=== PATIENT | male | born 2000 | race Caucasian/White ===

== ENCOUNTER 2019-10-05 13:51 | Emergency (ER) | payer SELFPAY ==
[2019-10-05 13:58] VITALS: BP 109/62; PULSE 55; RESP 16; TEMP 36.9; O2SAT 100
--- NOTE | 2019-10-05 14:10 | ED.GENADULT ---
HPI - General Adult General Chief complaint: Upper Respiratory Infection Stated complaint: levi/cough/sob/fever/body aches Time Seen by Provider: 10/05/19 14:11 Source: patient and RN notes reviewed Mode of arrival: ambulatory Limitations: no limitations History of Present Illness HPI narrative: This is a 19 years old male presented office for evaluation of cold/flulike symptoms for couple day. Symptoms include stuffy nose, body ache, chills and cough. Did not receive influenza vaccine for this season. He does not smoke however he does do e-cigarettes. Denies sick contact at home. He has been taking NyQuil for his symptoms. Related Data Allergies Allergy/AdvReac Type Severity Reaction Status Date / Time No Known Allergies Allergy Verified 10/05/19 14:05 Review of Systems Review of Systems: Narrative: CONSTITUTIONAL: Denies fever or chills/bodyache except at the beginning of his symptoms ENT:Reports sinus congestion/drainage. Denies otalgia. CARDIOVASCULAR: Denies chest pain RESPIRATORY: Denies dyspnea, wheezing. Reports cough with phlegm and chest tightness at times GASTROINTESTINAL: Denies abdominal pain, nausea, vomiting, diarrhea. GENITOURINARY: Denies urinary symptoms or discharge SKIN: Denies rash MUSCULOSKELETAL: Denies acute back pain NEUROLOGIC: Denies lightheaded PMFSH Social History Social History (Updated 10/05/19 @ 14:21 by LORA Borjas) Tobacco type: e-cigarettes Comments At time of signature, I agree with nursing past medical, surgical, social and family history. There is no relevant family history pertinent to the presenting complaint. Exam Narrative: Exam Narrative: GENERAL: This is a well-nourished, well-developed patient, in no apparent distress. EYES: Sclera clear/white. Vision is grossly intact. EARS: External ears normal, auditory canals clear and without drainage, TMs normal without perforation. Hearing grossly intact. NOSE: External nose normal with no obvious nasal discharge, nares without redness, no rhinorrhea. THROAT: Mucous membranes moist, posterior pharynx pink with drainage NECK: Neck supple, non-tender without lymphadenopathy, masses or thyromegaly. CARDIOVASCULAR: Regular rate and rhythm without murmurs, gallops, or rubs. RESPIRATORY: Clear to auscultation. Breath sounds equal bilaterally. No wheezes, rales, or rhonchi. GASTROINTESTINAL: Abdomen soft, non-tender, nondistended. Bowel sounds are active. No hepato-splenomegaly, or palpable masses. No guarding. SKIN: warm, intact with no suspicious lesions or rash, good texture and turgor. NEURO: awake, alert, and oriented to person, place and time. There were no obvious focal neurologic abnormalities. Steady gait Ahsan Coma Scale Eye Opening: Spontaneous 4 Ahsan Coma Scale Motor: Obeys Commands 6 Ahsan Coma Scale Verbal: Oriented 5 Course Vital Signs Vital signs: Vital Signs Temperature 98.5 F 10/05/19 13:58 Pulse Rate 55 L 10/05/19 13:58 Respiratory Rate 16 10/05/19 13:58 Blood Pressure 109/62 10/05/19 13:58 Pulse Oximetry 100 10/05/19 13:58 Temperature 98.5 F 10/05/19 13:58 Pulse Rate 55 L 10/05/19 13:58 Respiratory Rate 16 10/05/19 13:58 Blood Pressure 109/62 10/05/19 13:58 Pulse Oximetry 100 10/05/19 13:58 Medical Decision Making MDM Narrative Medical decision making narrative: No influenza test is indicated since patient is out of range for treatment at this time. Discharge instructions reviewed with patient, as well as provided in writing per nursing staff. The instructions also include specific and strict return/GO TO THE ER as well as f/u information. All questions have been answered, and the patient deny any further questions with discharge and discharge plan. Differential Diagnosis Differential Diagnosis: pneumonia, Allergic Rhinitis, Upper respiratory cough syndrome, Pharyngitis, Sinusitis, Bronchitis, otitis media, viral URI, Asthma/reactive airway disease
== END 2019-10-05 14:20 | disposition home or self-care (01) ==
PROVIDERS: Emergency Provider Nurse Practitioner
DX: J06.9 Acute upper respiratory infection, unspecified (principal); F17.200 Nicotine dependence, unspecified, uncomplicated
CPT/HCPCS: 99213; G0463

== ENCOUNTER 2020-12-18 14:19 | Emergency (ER) | payer SELFPAY ==
[2020-12-18 14:28] VITALS: BP 120/72; PULSE 55; RESP 16; TEMP 36.7; O2SAT 100
--- NOTE | 2020-12-18 14:50 | ED.GENADULT ---
HPI - General Adult General Chief complaint: Dental/Oral Stated complaint: Tooth pain Source: patient and RN notes reviewed Mode of arrival: ambulatory Limitations: no limitations History of Present Illness HPI narrative: This is a 20-year-old male who presented to urgent care with tooth pain patient has a decayed broken tooth at #9 in decayed tooth #7 and 8. Patient is unable to afford a dentist at this time but he has made an appointment for a dentist in approximately 1-1/2-week he is planning on getting all teeth removed and dentures placed. The patient denies SOB, CP, palpitation, extremity numbness, lightheadedness, dizziness, constipation, diarrhea, chills, or fever. MD complaint: Tooth ache Related Data Allergies Allergy/AdvReac Type Severity Reaction Status Date / Time No Known Allergies Allergy Verified 12/18/20 14:24 Review of Systems Review of Systems: Narrative: A 14 organ system Review of Systems was performed and pertinent positives included in the HPI, otherwise remaining ROS is negative. [facility] Family History Family History (Updated 12/18/20 @ 14:51 by RICK AdornoC) Other Family history non-contributory Social History Social History (Updated 10/05/19 @ 14:21 by LORA Borjas) Tobacco type: e-cigarettes/vaping Gender identity (if verbalized by the patient): Male Exam Narrative: Exam Narrative: GENERAL: This is a well-nourished, well-developed patient, in no apparent distress. HEAD: normocephalic, atraumatic. EYES: PERRL. Sclera clear/white. Vision is grossly intact. EARS: External ears normal, auditory canals clear and without drainage, TMs normal without perforation. Hearing grossly intact. NOSE: External nose normal with no obvious nasal discharge, nares without redness, no rhinorrhea. THROAT: Mucous membranes moist, posterior pharynx clear. NECK: Neck supple, non-tender without lymphadenopathy, masses or thyromegaly. CARDIOVASCULAR: Regular rate and rhythm without murmurs, gallops, or rubs. RESPIRATORY: Clear to auscultation. Breath sounds equal bilaterally. No wheezes, rales, or rhonchi. GASTROINTESTINAL: Abdomen soft, non-tender, nondistended. Bowel sounds are active. No hepato-splenomegaly, or palpable masses. No guarding. SKIN: warm, intact with no suspicious lesions or rash, good texture and turgor. NEURO: awake, alert, and oriented to person, place and time. There were no obvious focal neurologic abnormalities. Steady gait EXTREMITIES: Normal range of motion. No edema. No calf tenderness. Negative Homans sign bilaterally. BACK: Nontender without deformity or crepitance. No flank tenderness. Mouth: Broken decayed tooth #8 with decay at 7 and 8 Course Course Emergency Course: Patient will discharge home with antibiotics and pain medication he will follow up with the dentist in approximately a week and a half Vital Signs Vital signs: Vital Signs Temperature 98.1 F 12/18/20 14:28 Pulse Rate 55 L 12/18/20 14:28 Respiratory Rate 16 12/18/20 14:28 Blood Pressure 120/72 12/18/20 14:28 Pulse Oximetry 100 12/18/20 14:28 Temperature 98.1 F 12/18/20 14:28 Pulse Rate 55 L 12/18/20 14:28 Respiratory Rate 16 12/18/20 14:28 Blood Pressure 120/72 12/18/20 14:28 Pulse Oximetry 100 12/18/20 14:28 Medical Decision Making Vital Signs Vital Signs: Vital Signs Temperature 98.1 F 12/18/20 14:28 Pulse Rate 55 L 12/18/20 14:28 Respiratory Rate 16 12/18/20 14:28 Blood Pressure 120/72 12/18/20 14:28 Pulse Oximetry 100 12/18/20 14:28 Temperature 98.1 F 12/18/20 14:28 Pulse Rate 55 L 12/18/20 14:28 Respiratory Rate 16 12/18/20 14:28 Blood Pressure 120/72 12/18/20 14:28 Pulse Oximetry 100 12/18/20 14:28 Discharge Plan Discharge Clinical Impression: Dental caries Patient Disposition: Home, Self-Care Condition: Stable Instructions: Antibiotic Form Additional Instructions: Avoid temperature extremes
== END 2020-12-18 15:00 | disposition home or self-care (01) ==
PROVIDERS: Emergency Provider Nurse Practitioner
DX: K02.9 Dental caries, unspecified (principal); F17.200 Nicotine dependence, unspecified, uncomplicated
CPT/HCPCS: 99213; G0463

== ENCOUNTER 2022-10-06 12:27 | Emergency (ER) | payer SELFPAY ==
[2022-10-06 12:44] VITALS: BP 104/59; PULSE 66; RESP 16; TEMP 36.8; O2SAT 100
--- NOTE | 2022-10-06 12:58 | ED.URI ---
HPI - URI/Sore Throat General Chief Complaint: Upper Respiratory Infection Stated Complaint: headache Time Seen by Provider: 10/06/22 12:58 Source: patient Mode of arrival: ambulatory Limitations: no limitations History of Present Illness HPI Narrative: 22 yo M presents with c/o sinus headache, congestion and low grade fever starting around 5am. Took ibuprofen and feels better. Needs work note. No other complaints. Well appearing. All systems reviewed and negative except as noted above. Related Data Home Medications Medication Instructions Recorded Confirmed No Home Medications 10/06/22 10/06/22 Allergies Allergy/AdvReac Type Severity Reaction Status Date / Time No Known Allergies Allergy Verified 10/06/22 12:37 Review of Systems Review of Systems: CONSTITUTIONAL: Denies fever, chills, or sweats. EYES: Denies visual changes, redness, or discharge. ENT: Reports rhinorrhea, congestion, sinus pressure. Denies sore throat, or otalgia. CARDIOVASCULAR: Denies chest pain, palpitations, or edema. RESPIRATORY: Denies cough or dyspnea. GASTROINTESTINAL: Denies abdominal pain, nausea, vomiting, or diarrhea. GENITOURINARY: Denies dysuria or hematuria. SKIN: Denies rash or itching. MUSCULOSKELETAL: Denies back pain, joint pain, or myalgia. NEUROLOGIC: Denies headache, numbness, or weakness. PSYCHIATRIC: Denies anxiety or depression. All other systems reviewed are negative, except as documented in HPI. [facility] Family History Family History (Updated 12/18/20 @ 14:51 by LORA Adorno-C) Other Family history non-contributory Social History Social History (Updated 10/05/19 @ 14:21 by LORA Borjas) Tobacco type: e-cigarettes/vaping Gender identity (if verbalized by the patient): Male Comments At time of signature, agree with nursing past medical, surgical, social and family history. There is no relevant family history pertinent to the presenting complaint. Exam Narrative: GENERAL: This is a well-nourished, well-developed patient, in no apparent distress. HEAD: normocephalic, atraumatic. EYES: PERRL. Sclera clear/white. Vision is grossly intact. EARS: External ears normal, auditory canals clear and without drainage, TMs normal without perforation. Hearing grossly intact. NOSE: External nose normal with erythema, clear nasal drainage. No sinus tenderness. THROAT: Mucous membranes moist, No erythema, clear postnasal drainage. NECK: Neck supple, non-tender without lymphadenopathy, masses or thyromegaly. CARDIOVASCULAR: Regular rate and rhythm without murmurs, gallops, or rubs. RESPIRATORY: Clear to auscultation. Breath sounds equal bilaterally. No wheezes, rales, or rhonchi. \ SKIN: warm, Dry, intact with no suspicious lesions or rash, good texture and turgor. NEURO: awake, alert, and oriented to person, place and time. There were no obvious focal neurologic abnormalities. EXTREMITIES: No joint tenderness, effusion, or edema noted. Course Course Level of Care: Express Care Visit Vital Signs Vital signs: Vital Signs Temperature 36.8 C 10/06/22 12:44 Pulse Rate 66 10/06/22 12:44 Respiratory Rate 16 10/06/22 12:44 Blood Pressure 104/59 L 10/06/22 12:44 Pulse Oximetry 100 10/06/22 12:44 Oxygen Delivery Room Air 10/06/22 12:44 Temperature 36.8 C 10/06/22 12:44 Pulse Rate 66 10/06/22 12:44 Respiratory Rate 16 10/06/22 12:44 Blood Pressure 104/59 L 10/06/22 12:44 Pulse Oximetry 100 10/06/22 12:44 Oxygen Delivery Room Air 10/06/22 12:44 Reviewed MDM - URI/Sore Throat MDM Narrative Medical decision making narrative: Patient is aware of diagnosis, understands and agrees to treatment plan. Anticipatory guidance given. Patient agrees to follow-up as directed and is aware of reasons to seek care at the emergency department. Portions of this record may have been created with voice recognition software Discharge Plan Discharge Clinical
== END 2022-10-06 13:06 | disposition home or self-care (01) ==
PROVIDERS: Emergency Provider Nurse Practitioner Family
DX: J01.90 Acute sinusitis, unspecified (principal)
CPT/HCPCS: 99211; G0463

== ENCOUNTER 2022-12-10 15:47 | Emergency (ER) | payer OTHER, SELFPAY ==
--- NOTE | 2022-12-10 15:48 | ED.URI ---
HPI - URI/Sore Throat General Chief Complaint: Headache Stated Complaint: Headache/fever Time Seen by Provider: 12/10/22 16:26 Source: patient and RN notes reviewed Mode of arrival: ambulatory Limitations: no limitations History of Present Illness HPI Narrative: 22-year-old male presents with concern for missing work this morning because of a headache. He reports he does not have any symptoms. He reports he does not have fever aches, chills, sweats, runny nose, stuffy nose, sore throat, cough. He denies taking any medications for his symptoms MD elicited complaint: other (Headache) Related Data Home Medications Medication Instructions Recorded Confirmed No Home Medications 10/06/22 12/10/22 Allergies Allergy/AdvReac Type Severity Reaction Status Date / Time No Known Allergies Allergy Verified 12/10/22 16:20 Review of Systems Review of Systems: CONSTITUTIONAL: Denies malaise, chills, sweats, or fever. EYES: Denies visual changes, redness, or discharge. ENT: Denies rhinorrhea, congestion, sinus pain, otalgia and sore throat. CARDIOVASCULAR: Denies chest pain, palpitations, or edema. RESPIRATORY: Denies cough. Denies dyspnea. GASTROINTESTINAL: Denies abdominal pain, nausea, vomiting, diarrhea SKIN: Denies rash or itching. MUSCULOSKELETAL: Denies myalgia. NEUROLOGIC: Reports 1 episode of headache. All systems reviewed & are unremarkable except as noted in HPI and below PMFSH Family History Family History (Updated 12/18/20 @ 14:51 by LORA Adorno-C) Other Family history non-contributory Social History Social History (Updated 10/05/19 @ 14:21 by LORA Borjas) Tobacco type: e-cigarettes/vaping Gender identity (if verbalized by the patient): Male Comments At time of signature, agree with nursing past medical, surgical, social and family history. There is no relevant family history pertinent to the presenting complaint Exam Narrative: GENERAL: Well-appearing, well-nourished, and in no acute distress. HEAD: Normocephalic EYES: PERRLA, conjunctivae clear ENT: Nares clear, no discharge. Mucous membranes moist. TM pearly reyes with dull light reflex bilaterally; no tragal tenderness. Oropharynx not erythematous without lesions. Tonsils not enlarged and without exudate, no drooling, no hoarseness, no trismus, uvula midline. NECK: Supple. No lymphadenopathy CHEST: Clear to auscultation, breath sounds equal. No wheezing, rhonchi, rales, or stridor. No respiratory distress, speaks in full sentences. HEART: Regular rate and rhythm. No murmur heard. SKIN: Warm, dry, no rash. NEURO: Alert and oriented x3. PSYCH: Normal mood and affect Course Course Emergency Course: Patient is aware of diagnosis, understands and agrees to treatment plan. Anticipatory guidance given. Patient agrees to follow-up as directed and is aware of reasons to seek care at the emergency department. Portions of this record may have been created with voice recognition software Level of Care: Express Care Visit Vital Signs Vital signs: Vital Signs Temperature 97.9 F 12/10/22 15:59 Pulse Rate 69 12/10/22 15:59 Respiratory Rate 18 12/10/22 15:59 Blood Pressure 100/66 12/10/22 15:59 Pulse Oximetry 100 12/10/22 15:59 Oxygen Delivery Room Air 12/10/22 15:59 Temperature 97.9 F 12/10/22 15:59 Pulse Rate 69 12/10/22 15:59 Respiratory Rate 18 12/10/22 15:59 Blood Pressure 100/66 12/10/22 15:59 Pulse Oximetry 100 12/10/22 15:59 Oxygen Delivery Room Air 12/10/22 15:59 Reviewed. MDM - URI/Sore Throat MDM Narrative Medical decision making narrative: Differential diagnosis considered: Pedroza virus, strep pharyngitis, allergic rhinitis, upper respiratory tract infection, sinusitis, rhinosinusitis, nasopharyngitis. viral pharyngitis, otitis media, otitis externa, pneumonia, bronchitis, viral cough syndrome, viral syndrome, and influenza. Exam findings show no acute co
[2022-12-10 15:59] VITALS: BP 100/66; PULSE 69; RESP 18; TEMP 36.6; O2SAT 100
== END 2022-12-10 16:38 | disposition home or self-care (01) ==
PROVIDERS: Emergency Provider Nurse Practitioner
DX: R51.9 Headache, unspecified (principal); F17.290 Nicotine dependence, other tobacco product, uncomplicated
CPT/HCPCS: 99213; G0463

== ENCOUNTER 2024-03-20 16:01 | Emergency (ER) | payer SELFPAY ==
[2024-03-20 16:43] VITALS: BP 138/77; PULSE 76; RESP 18; TEMP 37.1; O2SAT 100
--- NOTE | 2024-03-20 17:25 | ED.NAVMDI ---
HPI - Nausea/Vomiting/Diarrhea General Chief complaint: Nausea/Vomiting/Diarrhea Stated complaint: nausea and headaches Time Seen by Provider: 03/20/24 17:25 Source: patient Mode of arrival: ambulatory Limitations: no limitations History of Present Illness HPI Narrative: 24-year-old male here for work note. Patient states he woke up yesterday feeling nauseated and had diarrhea. Was in able to go to work due to symptoms. afebrile. States all symptoms have resolved. All systems reviewed and negative except as noted above. Related Data Home Medications Medication Instructions Recorded Confirmed No Home Medications 10/06/22 03/20/24 Allergies Allergy/AdvReac Type Severity Reaction Status Date / Time No Known Allergies Allergy Verified 03/20/24 16:52 Review of Systems Review of Systems: CONSTITUTIONAL: Denies fever, chills, or sweats. EYES: Denies visual changes, redness, or discharge. ENT: Denies rhinorrhea, congestion, sore throat, or otalgia. CARDIOVASCULAR: Denies chest pain, palpitations, or edema. RESPIRATORY: Denies cough or dyspnea. GASTROINTESTINAL: Denies abdominal pain, vomiting . Reports nausea and diarrhea. GENITOURINARY: Denies dysuria or hematuria. SKIN: Denies rash or itching. MUSCULOSKELETAL: Denies back pain, joint pain, or myalgia. NEUROLOGIC: Denies headache, numbness, or weakness. PSYCHIATRIC: Denies anxiety or depression. All other systems reviewed are negative, except as documented in HPI. [facility] Family History Family History (Updated 12/18/20 @ 14:51 by RICK AdornoC) Other Family history non-contributory Social History Social History (Updated 10/05/19 @ 14:21 by LORA Borjas) Tobacco type: e-cigarettes/vaping Gender identity (if verbalized by the patient): Male Comments At time of signature, agree with nursing past medical, surgical, social and family history. There is no relevant family history pertinent to the presenting complaint. Exam Narrative: GENERAL: This is a well-nourished, well-developed patient, in no apparent distress. HEAD: normocephalic, atraumatic. EYES: PERRL. Sclera clear/white. Vision is grossly intact. EARS: External ears normal NOSE: External nose normal NECK: Neck supple, non-tender without lymphadenopathy, masses or thyromegaly. CARDIOVASCULAR: Regular rate and rhythm without murmurs, gallops, or rubs. RESPIRATORY: Clear to auscultation. Breath sounds equal bilaterally. No wheezes, rales, or rhonchi. GASTROINTESTINAL: Abdomen soft, non-tender, nondistended. Bowel sounds are active. No hepato-splenomegaly, or palpable masses. No guarding. SKIN: warm, Dry, intact with no suspicious lesions or rash, good texture and turgor. NEURO: awake, alert, and oriented to person, place and time. There were no obvious focal neurologic abnormalities. EXTREMITIES: No joint tenderness, effusion, or edema noted. Course Course Level of Care: Express Care Visit Vital Signs Vital signs: Vital Signs Temperature 37.1 C 03/20/24 16:43 Pulse Rate 76 03/20/24 16:43 Respiratory Rate 18 03/20/24 16:43 Blood Pressure 138/77 03/20/24 16:43 Pulse Oximetry 100 03/20/24 16:43 Oxygen Delivery Room Air 03/20/24 16:43 Temperature 37.1 C 03/20/24 16:43 Pulse Rate 76 03/20/24 16:43 Respiratory Rate 18 03/20/24 16:43 Blood Pressure 138/77 03/20/24 16:43 Pulse Oximetry 100 03/20/24 16:43 Oxygen Delivery Room Air 03/20/24 16:43 reviewed MDM - Nausea/Vomiting/Diarrhea MDM Narrative Medical decision making narrative: patient well-appearing. All symptoms have resolved at this time. Patient is aware of diagnosis, understands and agrees to treatment plan. Anticipatory guidance given. Patient agrees to follow-up as directed and is aware of reasons to seek care at the emergency department. Portions of this record may have been created with voice recognition software Discharge Plan Disch
== END 2024-03-20 17:30 | disposition home or self-care (01) ==
PROVIDERS: Emergency Provider Nurse Practitioner Family
DX: R11.0 Nausea (principal); R19.7 Diarrhea, unspecified; F17.290 Nicotine dependence, other tobacco product, uncomplicated
CPT/HCPCS: 99211; G0463

== ENCOUNTER 2024-04-19 11:11 | Emergency (ER) | payer SELFPAY ==
[2024-04-19 11:20] VITALS: BP 124/69; PULSE 73; RESP 16; TEMP 36.6; O2SAT 100
--- NOTE | 2024-04-19 11:26 | ED.URI ---
HPI - URI/Sore Throat General Chief Complaint: Upper Respiratory Infection Stated Complaint: sinus infection Time Seen by Provider: 04/19/24 11:27 Source: patient Mode of arrival: ambulatory Limitations: no limitations History of Present Illness HPI Narrative: 24-year-old male presents with complaint of postnasal drainage, sinus congestion and pressure starting yesterday. Afebrile. No fatigue, chills or body aches. Has not started any [id number] medications to treat his symptoms. Patient concern for sinus infection. Patient requesting work note. All systems reviewed and negative except as noted above. Related Data Home Medications Medication Instructions Recorded Confirmed No Home Medications 10/06/22 04/19/24 Allergies Allergy/AdvReac Type Severity Reaction Status Date / Time No Known Allergies Allergy Verified 04/19/24 11:14 Review of Systems Review of Systems: CONSTITUTIONAL: Denies fever, chills, or sweats. EYES: Denies visual changes, redness, or discharge. ENT: Reports rhinorrhea, congestion, sinus pressure, postnasal drainage. Denies sore throat, or otalgia. CARDIOVASCULAR: Denies chest pain, palpitations, or edema. RESPIRATORY: Denies cough or dyspnea. GASTROINTESTINAL: Denies abdominal pain, nausea, vomiting, or diarrhea. GENITOURINARY: Denies dysuria or hematuria. SKIN: Denies rash or itching. MUSCULOSKELETAL: Denies back pain, joint pain, or myalgia. NEUROLOGIC: Denies headache, numbness, or weakness. PSYCHIATRIC: Denies anxiety or depression. All other systems reviewed are negative, except as documented in HPI. PMFSH Family History Family History (Updated 12/18/20 @ 14:51 by CLARISSE Adorno) Other Family history non-contributory Social History Social History (Updated 10/05/19 @ 14:21 by LORA Borjas) Tobacco type: e-cigarettes/vaping Gender identity (if verbalized by the patient): Male Comments At time of signature, agree with nursing past medical, surgical, social and family history. There is no relevant family history pertinent to the presenting complaint. Exam Narrative: GENERAL: This is a well-nourished, well-developed patient, in no apparent distress. HEAD: normocephalic, atraumatic. EYES: PERRL. Sclera clear/white. Vision is grossly intact. EARS: External ears normal, auditory canals clear and without drainage, TMs normal without perforation. Hearing grossly intact. NOSE: External nose normal with clear nasal drainage, mild congestion. THROAT: Mucous membranes moist, clear postnasal drainage without erythema, swelling or exudates. NECK: Neck supple, non-tender without lymphadenopathy, masses or thyromegaly. CARDIOVASCULAR: Regular rate and rhythm without murmurs, gallops, or rubs. RESPIRATORY: Clear to auscultation. Breath sounds equal bilaterally. No wheezes, rales, or rhonchi. SKIN: warm, Dry, intact with no suspicious lesions or rash, good texture and turgor. NEURO: awake, alert, and oriented to person, place and time. There were no obvious focal neurologic abnormalities. EXTREMITIES: No joint tenderness, effusion, or edema noted. Course Course Level of Care: Express Care Visit Vital Signs Vital signs: Vital Signs Temperature 36.6 C 04/19/24 11:20 Pulse Rate 73 04/19/24 11:20 Respiratory Rate 16 04/19/24 11:20 Blood Pressure 124/69 04/19/24 11:20 Pulse Oximetry 100 04/19/24 11:20 Oxygen Delivery Room Air 04/19/24 11:20 Temperature 36.6 C 04/19/24 11:20 Pulse Rate 73 04/19/24 11:20 Respiratory Rate 16 04/19/24 11:20 Blood Pressure 124/69 04/19/24 11:20 Pulse Oximetry 100 04/19/24 11:20 Oxygen Delivery Room Air 04/19/24 11:20 Reviewed MDM - URI/Sore Throat MDM Narrative Medical decision making narrative: patient well-appearing. Symptoms for 24 hours. Recommend he try [id number] medications to treat his viral symptoms. Did offer COVID testing but he did not
== END 2024-04-19 11:34 | disposition home or self-care (01) ==
PROVIDERS: Emergency Provider Nurse Practitioner Family
DX: J01.90 Acute sinusitis, unspecified (principal); F17.290 Nicotine dependence, other tobacco product, uncomplicated
CPT/HCPCS: 99211; G0463

== ENCOUNTER 2024-08-07 16:26 | Emergency (ER) | payer SELFPAY ==
[2024-08-07 16:38] VITALS: BP 117/70; PULSE 82; RESP 18; TEMP 36.6; O2SAT 100
--- NOTE | 2024-08-07 17:11 | ED.NAVMDI ---
HPI - Nausea/Vomiting/Diarrhea General Chief complaint: Nausea/Vomiting/Diarrhea Stated complaint: nausea Time Seen by Provider: 08/07/24 17:11 Source: patient, RN notes reviewed and old records reviewed Mode of arrival: ambulatory Limitations: no limitations History of Present Illness HPI Narrative: patient presents with complaints of nausea and vomiting this morning. He reports all symptoms have resolved, but he did have to miss work as results of his symptoms. He presents today requesting work note, says that his symptoms have completely resolved Related Data Home Medications ?Medication ?Instructions ?Recorded ?Confirmed ?Last Taken ?Type No Home Medications 10/06/22 04/19/24 Unknown History Allergies Allergy/AdvReac Type Severity Reaction Status Date / Time No Known Allergies Allergy Verified 08/07/24 17:06 Review of Systems Review of Systems: All systems reviewed & are unremarkable except as noted in HPI and below Constitutional: Constitutional: Reports no additional constitutional complaints ENT: Reports system reviewed and no additional complaints, except as documented Cardiovascular: Cardiovascular: Reports no additional cardiovascular complaints Respiratory: Respiratory: Reports no additional respiratory complaints Gastrointestinal: Gastrointestinal: Reports as per HPI and Reports no additional gastrointestinal complaints [facility], [facility] Family History Family History Other Family history non-contributory Social History Social History Tobacco type: e-cigarettes/vaping Gender identity (if verbalized by the patient): Male Comments At the time of my signature, I reviewed and agree with the nursing past medical, surgical, social, and family history. There is no relevant family history pertinent to the patient complaint. Exam Const: General: cooperative, no acute distress, alert and awake Orientation/consciousness: oriented to person, oriented to place and oriented to time HENMT: Head: normal to inspection Resp: Effort & Inspection: normal respiratory effort and able to speak in complete sentences Auscultation: clear to auscultation bilaterally, no crackles, no rales, no rhonchi and no wheezes Cardio: Palpation: normal PMI Rate: regular rate Rhythm: regular rhythm Heart sounds: S1 normal heart sound present and S2 normal heart sound present GI: GI Palp: Yes Soft to palpation, No Tenderness to palpation present (GI), No Guarding due to palpation present (GI) and No Rigid due to palpation Auscultation: normal bowel sounds Neuro: General: oriented to person, oriented to place and oriented to time Cranial nerves: Yes CN's II-XII intact bilaterally Psych: Appearance: grossly normal Thought process: Normal thought process present Insight: Good insight present (Psych) Judgement: Good judgement present (Psych) Course Course Level of Care: Express Care Visit Vital Signs Vital signs: Vital Signs Temperature 97.9 F 08/07/24 16:38 Pulse Rate 82 08/07/24 16:38 Respiratory Rate 18 08/07/24 16:38 Blood Pressure 117/70 08/07/24 16:38 Pulse Oximetry 100 08/07/24 16:38 Oxygen Delivery Room Air 08/07/24 16:38 Temperature 97.9 F 08/07/24 16:38 Pulse Rate 82 08/07/24 16:38 Respiratory Rate 18 08/07/24 16:38 Blood Pressure 117/70 08/07/24 16:38 Pulse Oximetry 100 08/07/24 16:38 Oxygen Delivery Room Air 08/07/24 16:38 Reviewed MDM - Nausea/Vomiting/Diarrhea MDM Narrative Medical decision making narrative: patient with reassuring physical exam. No further complaints. Work note provided per request. Discharge instructions reviewed with patient, as well as provided in writing per nursing staff. The instructions also include specific and strict return/GO TO THE ER as well as f/u information. All questions have been answered, and the patient deny any further questions with discharge and discharge plan. Some parts of this dictation were generated by voice recognition software and may contain typographical and/or grammatical inaccuracies. Differential Diagnosis Differential diagnosis: Likely food poisoning, gastroenteritis and drug-induced nausea and vomiting Medical Records Attestation: I reviewed the patient's medical records. Discharge Plan Discharge Clinical Impression: Nausea & vomiting Qualifiers: Vomiting type: unspecified Qualified Code(s): R11.2 - Nausea with vomiting, unspecified Patient Disposition: Home, Self-Care Condition: Stable Instructions: Antibiotic Form, Acute Nausea and Vomiting (ED) Additional Instructions: follow-up with primary care provider. Emergency department for new or worse symptoms Patient Language: Yakut Prescriptions: No Action No Home Medications Follow-up/Referrals: PHYSICIAN,[employer] [Primary Care Provider] - Stand Alone Forms: Work/School Release IP Time of Disposition: 17:15
== END 2024-08-07 17:18 | disposition home or self-care (01) ==
PROVIDERS: Emergency Provider Nurse Practitioner Family; Referring Provider Emergency Medicine
DX: R11.2 Nausea with vomiting, unspecified (principal); F17.290 Nicotine dependence, other tobacco product, uncomplicated
CPT/HCPCS: 99199; 99211; G0463